=== PATIENT | female | born 1975 | race Caucasian/White ===

== ENCOUNTER 2024-10-24 09:24 | Emergency (ER) | payer SELFPAY ==
[2024-10-24 09:25] VITALS: BP 169/80; PULSE 88; RESP 16; TEMP 36.6; O2SAT 99; BMI 40.8
--- NOTE | 2024-10-24 09:40 | VDLE_ITS ---
Reason For Study Reason For Study: Pain LLE RIGHT LEFT CFV is compressible, spontaneous, phasic, competent GSV is normal. and demonstrates normal augmentation. CFV is compressible, spontaneous, phasic, competent, Procedure and demonstrates normal augmentation. This is a venous duplex using B-mode, color flow and FV is compressible, spontaneous, phasic, competent spectral Doppler. and demonstrates normal augmentation. Exam performed portable in ED. POP V is compressible, spontaneous, phasic, competent A preliminary report was called and/or faxed to and demonstrates normal augmentation. Bessie. T/P Trunk is compressible. PTV is compressible. LT PerV is compressible. VL/Venous Duplex US, Unilateral Interpretation Summary Deep veins of the left lower extremity are patent and compressible segmentally. There is no evidence of left lower extremity deep vein thrombosis. Valvular competence appears intact within the p roximal deep venous system on the left . The left great saphenous vein appears patent and compressible segmentally. The right common femoral vein is patent and compressible . Ordering Physician: Juana La Performed By: Lisa Cruz, KARLEY, RVT
--- NOTE | 2024-10-24 09:41 | EDS_ITS ---
HPI History of Present Illness Chief Complaint: Lower Extremity Injury Detail of Chief Complaint: Left leg pain Informant: patient Narrative Narrative: Patient presents with left leg pain that she has had for 2 weeks. She denies injury. Pain is continuous. She describes of pain in the left hip as well as anterior gómez and left great toe. No prior episodes like this before. She states that she had surgery on her back for an S1 herniated disc years ago but the pain feels different than sciatica at that time. Patient denies paresthesias or weakness to the extremity. She has had no fever. She denies recent travel or surgery. No prior history of DVT. She denies chest pain or shortness of breath. No prior history of gout. PFSH PFSH Home Medications ?Medication ?Instructions ?Recorded ?Last Taken ?Type hydrocodone-acetaminophen 5-325mg 1 tab PO Q4H PRN PRN Pain 2 days 10/24/24 Unknown Rx 5mg-325mg #10 TABLETS prednisone 20 mg tablet 20 mg PO BID #10 tabs Unknown Rx Allergy/AdvReac Type Severity Reaction Status Date / Time No Known Allergies Allergy Verified 10/24/24 09:24 Social History Smoking Status: Never smoker ROS ROS ED Review of Systems ROS Unobtainable: other Constitutional Constitutional ED: Reports lethargy; Denies chills, fever(s), sweats or weight loss Eyes Eyes: Denies blurry vision, change in vision or diplopia ENT ENT ED: Denies rhinorrhea or sore throat Cardiovascular Cardiovascular: Denies chest pain, orthopnea or racing heartbeat Respiratory/Chest Respiratory/Chest: Denies cough, dyspnea, dyspnea on exertion, orthopnea or sputum Gastrointestinal Gastrointestinal: Denies abdominal pain, diarrhea, nausea or vomiting Genitourinary Genitourinary ED: Denies dysuria, hematuria or urinary frequency Musculoskeletal Musculoskeletal: Reports other Details: Left leg pain ; Denies arthralgias, back pain, myalgias or neck pain Integumentary Denies abscess, Abrasions or rash Neurologic Neurologic: Denies headache(s) or weakness Psychiatric Psychiatric: Denies anxiety, depression or suicidal thoughts Endocrine Endocrinology: Denies polydipsia, polyphagia or polyuria Hematologic/Lymphatic Hematologic/Lymphatic: Denies easy bleeding, easy bruising or lymphadenopathy Allergic/Immunologic Allergic/Immunologic ED: Denies mouth swelling, tongue swelling or urticaria EXAM Physical Exam Const Vital Signs: 10/24/24 09:25 Temperature 98 F Temperature Source Temporal Pulse Rate 88 Respiratory Rate 16 Blood Pressure 169/80 H Blood Pressure Mean 109 Pulse Ox 99 Oxygen Delivery Method Room Air Positive well nourished and well developed General Appearance ED: well developed and NAD HEENT Reports TM's clear and moist mucous membranes normocephalic and atraumatic; Negative for trauma or tenderness Tympanic Membrane ED: Yes TM's clear Eyes PERRL and EOMs intact bilaterally General Eye ED: Negative for pale conjunctiva or scleral icterus Neck no lymphadenopathy, supple and no JVD General: Negative for tenderness Chest Wall inspection of chest normal and palpation of chest normal Chest: Negative for tenderness Resp normal respiratory effort and clear to auscultation bilaterally Effort and Inspection: Negative for respiratory distress or pain with movement Auscultation: Negative for rhonchi, wheezes or diminished lung sounds Cardio regular rate, regular rhythm, S1 normal heart sound, S2 normal heart sound and no murmurs Peripheral Pulses: pulses 2+ throughout GI normal to inspection, nondistended, normoactive bowel sounds, soft to palpation, non-tender, non-distended and no masses Back/Spine no CVA tenderness and no thoracic nor lumbar tenderness Extremity Extremity Narrative: Left leg-patient is some tenderness palpation over the left buttock and to the left hip. Negative straight leg raises. No ropes or cords palpated. Deep tendon reflexes plus 2 out of 4 bilaterally at the patella and Achilles. She has normal 5 extension bilaterally. She has normal sensation to light touch. No real tenderness over the knee. No effusion noted. She does have tenderness palpation over the first MTP joint of the left foot. There are some faint erythema to the medial aspect of the MTP joint. No cellulitic changes. General Extremety ED: Negative for edema General Extremity: Negative for edema Neuro oriented x3, CN's II-XII intact bilaterally, no sensory deficits noted and gait normal Sensorium / Orientation: awake, alert, oriented to person, oriented to place and oriented to time Motor Exam: strength 5/5 throughout and strength abnormal Psych mental status grossly normal Skin no rashes or lesions noted and no wounds MDM MDM MDM Narrative Medical decision making narrative: Patient presents the emergency department with left hip and lower extremity and foot pain. No trauma. History of sciatica on the opposite side but she states this feels different. Denies recent travel or surgery. Patient did have venous Doppler of the left lower extremity that was negative for DVT. He had a CBC with differential that was normal. Sed rate was normal. Uric acid level was normal at 5.5. X-rays of the left femur as well as tib-fib and left foot obtained showed no acute fractures or lytic lesions. This point etiology of her pain unclear although suspect possibility for gout still. No red flag symptoms for cauda equina. Symptoms not consistent with sciatica. Will start her on pr ednisone and give her prescription for [place] for pain. Will refer to primary care physician on-call for no doc for follow-up. Discharged home in stable condition Lab Data Attestation: I reviewed the patient's lab results. Labs: Laboratory Results - last 24 hr 10/24/24 10:28 WBC 8.1 RBC 4.66 Hgb 13.6 Hct 41.6 MCV 89.3 MCH 29.2 MCHC 32.7 RDW Std Deviation 43.0 RDW Coeff of Everardo 13.2 Plt Count 298 MPV 10.6 Immature Gran % (Auto) 0.200 Neut % (Auto) 56.7 Lymph % (Auto) 31.6 Lanier % (Auto) 8.2 Eos % (Auto) 2.6 Baso % (Auto) 0.7 Absolute Neuts (auto) 4.6 Absolute Lymphs (auto) 2.54 Nucleated RBC % 0 ESR 25 Uric Acid 5.5 Radiography Diagnostic Testing: Clinical Impression(s) from Imaging Studies Foot X-Ray 10/24/24 11:15 IMPRESSION: Degenerative changes at the 1st metatarsophalangeal joint. Reading Location: [facility]-1 Tibia/Fibula X-Ray 10/24/24 11:15 IMPRESSION: NEGATIVE TIBIAS AND FIBULAS Reading Location: [facility]-IR-1 Three-view x-rays of the left femur obtained interpreted by myself no evidence of fracture or dislocation. Radiology in agreement. Three-view x-rays of the left foot obtained interpreted by myself as no evidence of fracture or dislocation. Radiology in agreement and they note degenerative changes at the first MTP joint. 2 view x-rays of the left tib-fib obtained interpreted by myself as no evidence of fracture or dislocation. Radiology in agreement Discharge Plan Triage Chief Complaint: Lower Extremity Injury ED Provider: Juana La Dx/Rx/DC Orders Clinical Impression: Leg pain, left Instructions: ED Pain, Acute, Uncertain Cause Prescriptions: New prednisone 20 mg tablet 20 mg PO BID Qty: 10 0RF hydrocodone-acetaminophen 5-325 mg tablet 1 tab PO Q4H PRN PRN (Reason: Pain) 2 Days Qty: 10 0RF Primary Care Provider: Care Physician,No Primary Referrals: Jose Eduardo Maradiaga MD [Med Staff - Active Staff] - 3-5 Days NOT,DEFINED [Non-Staff] - Print Language: Turkish Disposition Disposition: Home, Self Care
[2024-10-24 10:46] LABS: Absolute Lymphocyte Count 2.54 X10^3/uL (0.83-4.51); Absolute Neutrophil Count 4.6 X10^3/uL (2.0-7.7); Basophil# 0.06 X10^3/uL; Basophil% 0.7 % (0-1); Eosinophil# 0.21 X10^3/uL; Eosinophils% 2.6 % (0-5); Hematocrit 41.6 % (37-47); Hemoglobin 13.6 g/dL (12.0-15.0); Lymphocyte # 2.54 X10^3/ul (0.83-4.51); Lymphocyte % 31.6 % (19-41); Mean Corp Hgb Conc 32.7 g/dL (32-36); Mean Corpuscular Hgb 29.2 pg (27.0-32.0); Mean Corpuscular Volume 89.3 fL (81-99); Mean Platelet Vol. 10.6 fl (6.2-12.0); Monocyte# 0.66 X10^3/uL; Monocyte% 8.2 % (0-10); NRBC Flagged by Analyzer 0 % (0-5); Neutrophil # 4.56 X10^3/uL (2.7-7.7); Neutrophil % 56.7 % (47-70); Platelet Count 298 K/mm3 (150-450); RBC Distribution Width CV 13.2 % (11.6-14.6); Red Blood Count 4.66 M/mm3 (4.2-5.4); White Blood Count 8.1 K/mm3 (4.4-11.0)
[2024-10-24 10:57] LABS: Uric Acid 5.5 mg/dL (2.6-6.0)
[2024-10-24 11:05] LABS: Erythrocyte Sedimentation Rate 25 mm/hr (0-30)
--- NOTE | 2024-10-24 11:15 | RAD_ITS ---
PROCEDURE: TIBIA FIBULA 2 VIEWS 10/24/2024 REASON FOR EXAM: Nontraumatic pain. TECHNIQUE: 2 view(s) of the left tibia and fibula were obtained. FINDINGS: LEFT TIBIA / FIBULA: Bones left: No fracture. No suspicious bone lesion. Joints left: Normal alignment at the knee and ankle. soft tissues left: Soft tissues are unremarkable. RAD/Tibia & Fibula 2 Views IMPRESSION: NEGATIVE TIBIAS AND FIBULAS Reading Location: [place] [id number]
--- NOTE | 2024-10-24 11:15 | RAD_ITS ---
PROCEDURE: FOOT MIN 3 VIEWS 10/24/2024 REASON FOR EXAM: Left foot pain. No known injury. TECHNIQUE: 3 view(s) of the left foot were obtained. FINDINGS: LEFT FOOT: Bones left: No visible fracture. No suspicious bone lesion. Joints left: Mild degree of joint space narrowing at the 1st metatarsophalangeal joints suggestive of degenerative changes. Soft tissues left: Soft tissues are unremarkable. RAD/Foot min 3 Views IMPRESSION: Degenerative changes at the 1st metatarsophalangeal joint. Reading Location: [place] [id number]
--- NOTE | 2024-10-24 11:15 | RAD_ITS ---
EXAM: XR Left Femur, 2 Views CLINICAL INDICATION: PAIN TECHNIQUE: Frontal and lateral views of the left femur. COMPARISON: No relevant prior studies available. FINDINGS: BONES/JOINTS: Unremarkable. No acute fracture. No dislocation. SOFT TISSUES: Unremarkable. RAD/Femur Min 2 Views IMPRESSION: Normal left femur x-rays. [facility]
[2024-10-24] MEDS: predniSONE 20 MG Tablet 40 MG PO (12:16)
[2024-10-24 12:28] VITALS: BP 169/80; PULSE 88; RESP 16; TEMP 36.6; O2SAT 99
== END 2024-10-24 12:29 | disposition home or self-care (01) ==
PROVIDERS: Emergency Provider Emergency Medicine; Visit Provider Emergency Medicine
DX: M79.605 Pain in left leg (principal)
CPT/HCPCS: 73552; 73590; 73630; 84550; 85025; 85652; 93971; 99283; A4216